=== PATIENT | female | born 1980 | race Caucasian/White ===

== ENCOUNTER 2018-08-03 14:02 | Emergency (ER) | payer MEDICAID ==
[~2018-08-03] VITALS: Ht 152.4 cm; Wt 72.7 kg
--- NOTE | 2018-08-03 15:30 | REP ---
Clinical: Asymmetric pupillary dilatation . Comparison: None . Findings: The ventricles, sulci, and cisterns are normal in position and appearance. Raygoza-white differentiation is maintained. No acute intracranial hemorrhage, mass/mass effect, pathology or trauma/injury. No evidence for acute infarction. No extra-axial fluid collection. Calvarium is intact. Paranasal sinuses and mastoid air cells are clear. Impression: Normal noncontrast head CT. No evidence for acute intracranial pathology or trauma/injury. Electronically Signed by Ty Villanueva MD 08/03/2018 03:21 P
[2018-08-03] MEDS ORDERED: TETRACAINE 0.5% OPHTH SOLN 4ML OD ONE (16:15)
[2018-08-03 17:15] VITALS: BP 117/77
== END 2018-08-03 17:25 | disposition home or self-care (01) ==
LOC: M ED 14:02
DX: H57.02 Anisocoria (principal); I10 Essential (primary) hypertension; F17.210 Nicotine dependence, cigarettes, uncomplicated; Z86.69 Personal history of other diseases of the nervous system and sense organs

== ENCOUNTER → 2022-05-16 | Outpatient (CLI) | payer MEDICAID | LOC: M OUTALCOH 10:28 | PROVIDERS: ATTEND Psychiatry & Neurology Psychiatry | DX: Z13.39 Encounter for screening examination for other mental health and behavioral disorders (principal) ==

== ENCOUNTER 2022-06-06 09:00 | Outpatient (RCR) | payer MEDICAID | END 2022-06-09 | LOC: M OUTALCOH 09:00 | PROVIDERS: ATTEND Psychiatry & Neurology Psychiatry | DX: F10.20 Alcohol dependence, uncomplicated (principal); F12.10 Cannabis abuse, uncomplicated; F17.200 Nicotine dependence, unspecified, uncomplicated ==

== ENCOUNTER → 2022-07-10 | Outpatient (RCR) | payer MEDICAID | LOC: M OUTALCOH 06-13 08:57 | PROVIDERS: ATTEND Psychiatry & Neurology Psychiatry | DX: F10.20 Alcohol dependence, uncomplicated (principal); F12.10 Cannabis abuse, uncomplicated; F17.200 Nicotine dependence, unspecified, uncomplicated ==

== ENCOUNTER 2022-07-18 09:22 | Outpatient (RCR) | payer MEDICAID | END 2022-08-09 | LOC: M OUTALCOH 09:22 | PROVIDERS: ATTEND Psychiatry & Neurology Psychiatry | DX: F10.20 Alcohol dependence, uncomplicated (principal); F12.10 Cannabis abuse, uncomplicated; F17.200 Nicotine dependence, unspecified, uncomplicated ==

== ENCOUNTER 2022-09-05 10:52 | Outpatient (RCR) | payer MEDICAID | END 2022-09-09 | LOC: M OUTALCOH 10:52 | PROVIDERS: ATTEND Psychiatry & Neurology Psychiatry | DX: F10.20 Alcohol dependence, uncomplicated (principal); F12.10 Cannabis abuse, uncomplicated; F17.200 Nicotine dependence, unspecified, uncomplicated ==

== ENCOUNTER → 2023-01-08 | Outpatient (CLI) | payer MEDICAID | LOC: M WUC 10:07 | PROVIDERS: ATTEND Physician Assistant | DX: S60.212D Contusion of left wrist, subsequent encounter (principal); S60.222A Contusion of left hand, initial encounter; W18.30XD Fall on same level, unspecified, subsequent encounter ==

== ENCOUNTER → 2023-09-07 | Outpatient (CLI) | payer OTHER | LOC: M RAD 10:43 | PROVIDERS: ATTEND Student in an Organized Health Care Education/Training Program | DX: M54.2 Cervicalgia (principal) ==

== ENCOUNTER → 2024-03-16 | Outpatient (CLI) | payer OTHER, SELFPAY | LOC: M WHC 13:04 | PROVIDERS: ATTEND Physician Assistant | DX: N63.10 Unspecified lump in the right breast, unspecified quadrant (principal); R59.0 Localized enlarged lymph nodes; N60.12 Diffuse cystic mastopathy of left breast | CPT/HCPCS: 76641; 76642; 77066; G0279 ==

== ENCOUNTER → 2024-06-08 | Outpatient (CLI) | payer OTHER ==
[2024-06-08 13:57] LABS: BASO # 0.1 10^3/uL (0.0-0.2); BASO % 1.1 % (0.0-1.0); EOS # 0.4 10^3/uL (0.0-0.5); EOS % 3.3 % (0.0-3.0); HEMATOCRIT 40.4 % (36.0-47.0); HEMOGLOBIN 13.2 g/dl (12.0-15.5); LYMPH # 2.9 10^3/uL (1.5-5.0); MEAN CORPUSCULAR HEMOGLOBIN 29.9 pg (27.0-33.0); MEAN CORPUSCULAR HGB CONC 32.7 g/dl (32.0-36.5); MEAN CORPUSCULAR VOLUME 91.6 fl (80.0-96.0); MONO % 9.9 % (2.0-8.0); NEUTROPHILS % 57.2 % (36.0-66.0); PLATELET COUNT, AUTOMATED 406 10^3/uL (150-450); RED BLOOD COUNT 4.41 10^6/uL (4.00-5.40); WHITE BLOOD COUNT 10.5 10^3/uL (4.0-10.0)
[2024-06-08 14:02] LABS: ERYTHROCYTE SEDIMENTATION RATE 16 mm/hr (0-20)
[2024-06-08 14:18] LABS: ALBUMIN 4.1 G/DL (3.2-5.2); ALKALINE PHOSPHATASE 80 U/L (35-104); ALT/SGPT 27 U/L (7.0-40); AST/SGOT 15 U/L (<34); BILIRUBIN,TOTAL 0.3 MG/DL (0.3-1.2); BLOOD UREA NITROGEN 14 MG/DL (9-23); C REACTIVE PROTEIN QUANTITATIV < 0.50 MG/DL (<1.0); CALCIUM LEVEL 9.8 MG/DL (8.5-10.1); CARBON DIOXIDE LEVEL 28 MMOL/L (20-31); CHLORIDE LEVEL 105 MMOL/L (98-107); CHOLESTEROL LEVEL 229 MG/DL (<200); CHOLESTEROL RISK RATIO 3.49 (<5); CREATININE FOR GFR 0.73 MG/DL (0.55-1.30); GLOMERULAR FILTRATION RATE > 90.0 (>58); GLUCOSE, FASTING 94 MG/DL (60-100); HDL CHOLESTEROL 65.6 MG/DL (>40); LDL CHOLESTEROL 125.8 MG/DL (<100); NON-HDL-C 163.4 MG/DL; POTASSIUM SERUM 4.1 MMOL/L (3.5-5.1); SODIUM LEVEL 141 MMOL/L (136-145); TOTAL PROTEIN 7.5 G/DL (5.7-8.2); TRIGLYCERIDES LEVEL 188 MG/DL (<150)
[2024-06-08 14:24] LABS: RHEUMATOID FACTOR QUANT 6.2 IU/ML (<14)
[2024-06-08 14:26] LABS: FREE T4 0.77 NG/DL (0.89-1.76); THYROID STIMULATING HORMONE 25.463 uIU/ML (0.55-4.78)
== END ==
LOC: M PLALAB 10:43
PROVIDERS: ATTEND Nurse Practitioner Family
DX: R53.83 Other fatigue (principal); M54.12 Radiculopathy, cervical region; M54.50 Low back pain, unspecified; M25.531 Pain in right wrist; M25.532 Pain in left wrist; M25.511 Pain in right shoulder; M25.512 Pain in left shoulder; M25.551 Pain in right hip; M25.552 Pain in left hip

== ENCOUNTER → 2024-06-08 | Outpatient (REF) | payer OTHER | LOC: M SFHCPLAZ 09:54 | PROVIDERS: ATTEND Nurse Practitioner Family | DX: R53.83 Other fatigue (principal); M25.50 Pain in unspecified joint; Z13.220 Encounter for screening for lipoid disorders ==

== ENCOUNTER → 2024-08-12 | Outpatient (CLI) | payer MEDICAID, OTHER ==
[2024-08-12 18:18] LABS: FREE T4 1.18 NG/DL (0.89-1.76)
[2024-08-12 18:19] LABS: BASO # 0.1 10^3/uL (0.0-0.2); BASO % 1.0 % (0.0-1.0); EOS # 0.3 10^3/uL (0.0-0.5); EOS % 3.6 % (0.0-3.0); LYMPH # 2.3 10^3/uL (1.5-5.0); LYMPH % 27.1 % (24.0-44.0); MONO # 1.0 10^3/uL (0.0-0.8); MONO % 11.0 % (2.0-8.0); NEUTROPHILS # 4.9 10^3/uL (1.5-8.5); NEUTROPHILS % 57.0 % (36.0-66.0); PLATELET COUNT, AUTOMATED 366 10^3/uL (150-450)
== END ==
LOC: M WUC 11:43
PROVIDERS: ATTEND Nurse Practitioner Family
DX: E03.9 Hypothyroidism, unspecified (principal)